=== PATIENT | female | born 1990 | race Caucasian/White ===

== ENCOUNTER → 2016-08-04 | Outpatient (CLI) | payer OTHER ==
[2016-08-04 17:53] LABS: BUN/CREATININE RATIO 27 (0-10)
== END ==
LOC: LAB 17:08
PROVIDERS: Registered Nurse
DX: Z11.4 Encounter for screening for human immunodeficiency virus [HIV] (principal); R94.5 Abnormal results of liver function studies; R53.83 Other fatigue; B18.2 Chronic viral hepatitis C
CPT/HCPCS: 80053; 80074; 82248; 87390